=== PATIENT | male | born 2000 | race Caucasian/White ===

== ENCOUNTER 2018-07-16 05:05 | Emergency (ER) | payer SELFPAY ==
[2018-07-16 05:12] VITALS: BP 142/96; PULSE 99; RESP 15; TEMP 36.4; O2SAT 100
--- NOTE | 2018-07-16 05:34 | ED.GENADUL_ITS ---
Discharge Plan Disposition Patient Disposition: HOME Condition: Good Discharge Details Chief Complaint: Nk/Back Pain Clinical Impression: Muscle spasm Primary Care Provider: Eladia,Local ED Provider: Isaiah Blanco Home Meds and New Rx's Prescriptions: New acetaminophen [Mapap Extra Strength] 500 MG tablet 1,000 mg PO Q6H 5 Days Qty: 60 RF: 0 lidocaine [Lidoderm] 1 PATCH patch 1 patch Topical Q24H Qty: 4 RF: 0 ibuprofen [Motrin IB] 200 MG tablet 600 mg PO Q6H 5 Days Qty: 60 RF: 0 cyclobenzaprine 10 mg tablet 10 mg PO TID Qty: 10 RF: 0 Discharge Instructions Instructions: Muscle Spasm (ED) Additional Instructions: Please take medications as directed. Please use a heating pad and ice as often as possible with regular massage the muscles. No lifting anything greater than 10 pounds. If you notice any worsening of your symptoms, or any new symptoms such as vomiting, diarrhea, fever, chills, shortness of breath, chest pain, numbness, weakness, or fainting , please return immediately to the emergency department for reevaluation. Please follow up with your primary care provider as soon as possible for reassessment and reevaluation. As always, it was a pleasure participating in your medical care today. Medical Decision Making This is a pleasant 18-year-old male who presents for evaluation of left-sided shoulder neck and back stiffness. He has chronic stiffness. He noticed this worsening stiffness 3 days ago after playing a vigorous game of [employer]. Signs and symptoms are improved with massage, worsened with movement. He denies any red flags of numbness or tingling, recent trauma, fever or chills. He has no neck stiffness, neck tightness, headache, or signs or symptoms of meningitis. Physical exam demonstrates reproducible paraspinal musculature stiffness, with signs and symptoms consistent with muscle spasm. Patient will be given Flexeril, Toradol, and a Lidoderm patch here. We will give him a prescription for this for home. We discussed ice from history patient understands. We discussed the importance with close PCP follow-up. I have extensively reviewed the treatment plan and discharge instructions with the patient and their family. I have addressed all patient concerns at this time. The patient and family was made aware of what symptoms to monitor for that would warrant a return to the emergency department. Discussed the plan with the patient and family, they demonstrate verbal understanding and agreement with our assessment and plan at this time. HPI General Date/Time Provider Initiated Documentation: 07/16/18 05:13 . HPI Narrative: This is a 18-year-old male with no significant past medical history presents today for evaluation of back pain. The patient states that he chronically has some neck back and shoulder stiffness, however this is very normal for him. He says that about 3 days ago he played some vigorous racquetball, and after that he noticed an increase in stiffness in his left shoulder neck and back. It is worse with movement, and located primarily on his left paraspinal musculature, with some radiation to the left side of the neck, and the left shoulder. It is improved with massage, it is unchanged by Tylenol or ibuprofen. He has no associated numbness or tingling of his arm, chest, or leg. He denies any headache. He denies any neck pain. Patient states that he has had symptoms like this in the past but never this bad. He denies any other trauma, any IV or illicit drug use, or any other modifying factors. Patient denies any surgeries, pertinent family history. He has no additional complaints at this time. Related Data Home Medications Medication Instructions Recorded Confirmed acetaminophen [Mapap Extra 1,000 mg PO Q6H 5 Days #60 tab 07/16/18 Strength] cyclobenzaprine 10 mg PO TID #10 tab 07/16/18 ibuprofen [Motrin Ib] 600 mg PO Q6H 5 Days #60 tab 07/16/18 lidocaine [Lidoderm] 1 patch TOPICAL Q24H #4 patch 07/16/18 Previous Rx's Medication Instructions Recorded acetaminophen [Mapap Extra 1,000 mg PO Q6H 5 Days #60 tab 07/16/18 Strength] cyclobenzaprine 10 mg PO TID #10 tab 07/16/18 ibuprofen [Motrin Ib] 600 mg PO Q6H 5 Days #60 tab 07/16/18 lidocaine [Lidoderm] 1 patch TOPICAL Q24H #4 patch 07/16/18 Allergies Allergy/AdvReac Type Severity Reaction Status Date / Time No Known Allergies Allergy Unverified 07/16/18 05:17 General Stated Complaint: Nk/Back Pain FRANK: 4 Review of Systems Review of Systems All systems reviewed & are unremarkable except as noted in HPI and below PFSH Social History Smoking/Tobacco Use Status: Never Social History Smoking/Tobacco Use Status: Never Exam Narrative Exam Narrative: 1.Const: Well-nourished, Well-developed, appearing stated age 2.Eyes: PERRL, no conjunctival injection, and symmetrical lids. 3.ENT: Atraumatic external nose and ears. Moist MM. Neck: Symmetric, trachea midline, No thyromegaly. Patient demonstrates good movement of cervical neck. There is no nuchal rigidity, no nuchal tenderness. Patient is able to flex the neck without any difficulty or significant pain. Negative Kernig's and Brudzinski sign. 4.CVS: +S1/S2, No murmurs or gallops. Peripheral pulses 2+ and equal in all extremities. Brisk capillary refill in all extremities. 5.RESP: Unlabored respiratory effort. Clear to auscultation bilaterally. No wheezes rales or rhonchi 6.GI: Soft, Nontender/Nondistended, No hepatosplenomegaly. No guarding or rebound. 7.MSK: Normocephalic/Atraumatic, Extremities w/o deformity or ttp No cyanosis or clubbing, Normal movement of all extremities. No midline tenderness to palpation over the CTLS spine. Normal ROM in flexion, extension, side bend, and rotation. Patient has +5 out of 5 strength in the lower extremities in dorsiflexion and plantarflexion, knee flexion and extension, hip flexion and extension. There is +2 over 2 dorsalis pedis pulses bilaterally. There is normal sensation to the skin with light touch at the foot, knee, and hip. Normal saddle sensation. Good sensation over the deep sural nerve area bilaterally. Rectal exam deferred. Reflexes are +2 over 4 in the patellar reflex bilaterally. +5 out of 5 strength in the medial, ulnar, radial nerve distribution bilaterally in the hands as well as intact light touch sensation to these dermatomes on the hands. Patient does have some right-sided paraspinal tenderness, with some mild tenderness over the left latissimus dorsi just medial to the scapula. Pain is notably improved with massage. No other significant abnormality or signs of trauma. 8.Skin: Warm, Dry. No rashes or lesions. 9.Neuro: [employer] II-XII grossly intact. Sensation grossly intact, no focal neurologic deficits. 10.Psych: (AAO) x3. Appropriate mood and affect Course Vital Signs Temperature 36.4 C L 07/16/18 05:12 Pulse 99 H 07/16/18 05:12 Respiratory Rate 15 07/16/18 05:12 Blood Pressure 142/96 H 07/16/18 05:12 Pulse Oximetry 100 07/16/18 05:12 Temperature 36.4 C L 07/16/18 05:12 Temperature Source Temporal Artery Scan 07/16/18 05:12 Pulse 99 H 07/16/18 05:12 Respiratory Rate 15 07/16/18 05:12 Respiratory Effort Non-Labored 07/16/18 05:16 Blood Pressure 142/96 H 07/16/18 05:12 Blood Pressure Position Sitting 07/16/18 05:12 Pulse Oximetry 100 07/16/18 05:12 Oxygen Delivery Method Room Air 07/16/18 05:12 Oxygen Flow Rate 0 07/16/18 05:12 Pain Level 8 07/16/18 05:17
[2018-07-16] MEDS: Cyclobenzaprine 10 MG TAB PO (05:35)
[2018-07-16] MEDS: Ketorolac 30 MG/ML VIAL IM (05:35)
[2018-07-16] MEDS: Lidocaine 5% Patch 1 PATCH TP (05:36)
[2018-07-16 05:44] VITALS: BP 142/96; PULSE 99; RESP 15; TEMP 36.4; O2SAT 100
== END 2018-07-16 05:46 | disposition home or self-care (01) ==
LOC: ER 05:47
PROVIDERS: Emergency Provider Student in an Organized Health Care Education/Training Program
DX: M62.830 Muscle spasm of back (principal); Y93.73 Activity, racquet and hand sports
CPT/HCPCS: 96372; 99284; J1885